=== PATIENT | female | born 1990 | race Caucasian/White ===

== ENCOUNTER 2022-02-22 00:08 | Day surgery (SDC) | payer OTHER, SELFPAY ==
[2022-02-11 10:22] VITALS: BMI 22.8
--- NOTE | 2022-02-11 10:26 | PC.NURSE ---
Report to the Outpatient Waiting Room, entrance under the green pavilion located off [facility], at time 0630 on date 02/22/22. Planned Procedure Time: 0830. Time changes happen often and if your time is changed the preop area will call you the afternoon before. - You and your visitor will be asked to self-screen and do not enter if you have any COVID symptoms. - Only one visitor is requested with a max of two and NO children visitors are allowed at this time. - The patient visitor may be requested to leave or wait in car when not with patient due to distancing restrictions. - A mask is REQUIRED within the hospital. Patients may have clear liquids (water, carbonated beverages, clear teas, apple juice) until 3 hours prior to surgery with a maximum of 20 ounces. - No food from midnight until time of surgery Take the following medications with a SIP of water the morning of surgery: N/A Medications to discontinue per physician: N/A Date to take last dose: N/A Please no make-up, nail iranian, hairspray, perfume, deodorant, or body powder the day of surgery. No jewelry (including any body piercings) or valuables the day of surgery, leave them at home. Please take a shower or bath the night before, or the morning of, surgery with an antibacterial soap. Wear comfortable, loose fitting clothing. - Jewelry must be removed prior to entering the operating room. Rings and piercings that are not removed may be cut off. - The hospital will not accept responsibility for valuables. - Please leave all valuables, including medications, at home the day of surgery. If you are going home after surgery, a licensed steam train driver must drive you home. - NO public transportation without another adult if you receive anesthesia. - We recommend that an adult stay with you for 24 hours following discharge. - We also recommend that you do not drive, make important decision, drink alcoholic beverages, or take any drugs that were not prescribed by your health care provider for at least 24 hours after your discharge time. Follow any additional instructions given to you from your surgeon. If you or anyone in your household have experienced Covid symptoms in the past week, please notify your surgeon or the nurse liaison at the phone number below for possible testing. Telephone instructions given to PT - ILYA PINEDA and asked if any additional questions and then verbalized understanding. Patient advised to call surgeon office or pre surgery nurse liaison [phone] if any additional questions.
[2022-02-22] VITALS (10 sets, daily range): BP systolic 99–126; BP diastolic 45–68; PULSE 72–116; RESP 12–20; TEMP 36.1–37.1; O2SAT 99–100
--- NOTE | 2022-02-22 06:29 | ECG_ITS ---
Measurements Intervals [place] Rate: 73 P: 69 [place]: 177 QRS: 92 QRSD: 96 T: 68 QT: 383 QTc: 422 Interpretive Statements SINUS RHYTHM WITH SINUS ARRHYTHMIA RIGHT AXIS DEVIATION POSSIBLE LEFT ATRIAL ENLARGEMENT DELAYED PRECORDIAL R/S TRANSITION BORDERLINE ECG NO PREVIOUS ECG AVAILABLE FOR COMPARISON Electronically Signed On 02-22-2022 9:02:03 BUSINESS AFFAIRS MANAGER by Philippe López D.O.
--- NOTE | 2022-02-22 06:54 | WPDHPUPDATE1 ---
History and Physical Update Update Date/Time: 02/22/22 06:54 History and Physical has been reviewed, including an updated exam of the patient. There are NO changes in the patient's condition. Risks, benefits, and alternatives have been discussed and questions answered. Patient agrees to proceed with procedure.
--- NOTE | 2022-02-22 06:54 | W.PM.PROC2 ---
Procedure Note - Detailed Date of Procedure 02/22/22 Pre-op Diagnosis Skin Laxity, Localized Adiposity Post-op Diagnosis Same Procedure Performed Belt lipectomy with suction lipectomy Surgeon All Eason MD Anesthesia General Findings Tissue removed: 1146 grams Lipoaspirat: 2300 cc Description of Procedure She is here today for the above. Previously and again today the risks, benefits, alternatives were discussed in extensive detail. I wanted them to be very realistic about the risks involved as well as expectations. We discussed aftercare and what to monitor for. I was very upfront about the risks of wound breakdown leading to loss of skin, open wounds, and need for additional procedures with permanent abdominal deformity. We discussed DVT/PE risks and management. Made sure answered all of their questions to their satisfaction today and consent was obtained. They were marked in the preoperative holding area with their verification. The patient was taken to the operating room. Anesthesia was provided by anesthesiology. A Means catheter was started. She was placed in a prone position with care taken to protect during position. They were prepped and draped in a standard sterile fashion. A surgical time-out was taken. Stab incisions were made and tumescent solution infiltrated. Once adequate time was allowed for hemostasis a 5mm basket cannula was utilized to complete suction lipectomy based on S.A.F.E. technique in multiple planes and passes. Suction lipectomy continued to result based on pre-operative planning, intra-operative observation, and rolling pinch test which were in full agreement. A 10 blade was used to make the upper incision. I continued dissection down to the level of fascia. Elevated inferiorly just what was planned for resection. A 10 blade used to make the lower incision. The intervening tissue was removed. care was taken to ensure the tension was appropriate for removal when the bed was flexed for the abdomen. I obliterated all space with 2-0 Vicryl. I then approximated using a 3 point suture with 2-0 Vicryl followed by 3-0 stratafix ,running subcuticular 4-0 Monocryl, and tissue glue. She was then placed supine and a 360 degree prep was completed and draped in a standard sterile fashion. I placed the patient in a flexed position to verify the upper and lower markings would reach. I then placed supine. A thorough abdominal examination was completed. Stab incisions were made and tumescent solution infiltrated. Once adequate time was allowed for hemostasis a 5mm basket cannula was utilized to complete suction lipectomy based on S.A.F.E. technique in multiple planes and passes. There were turned to bilateral lateral decubitus position with care taken to protect them for injury during this process. Suction lipectomy continued to result based on pre-operative planning, intra-operative observation, and rolling pinch test which were in full agreement. A 10 blade was used to make the upper incision. I continued dissection down to the level of fascia. Elevated just what was necessary for repair of the diastasis. I then again flexed the bed to verify the upper skin flap would reach the lower markings without tension. Once verified I placed her supine once again and a 10 blade used to make the lower incision. I elevated up to level the umbilicus and left the umbilicus intact on a well-vascularized stalk. The intervening tissue was removed. A 2 mm blunt cannula with 0.5% bupivicaine was injected deep to the fascia bilaterally. I plicated the diastasis recti using 0 PDO stratafix barbed suture. This was in 2 separate layers using 2 separate sutures as well. I repaired around the umbilicus leaving plenty of room for well-vascularized stalk of the umbilicus with 2-0 PDS. I also repaired lateral to the rectus using two layers of 0 PDO stratafix. The patient was flexed and starting from superior to infer
--- NOTE | 2022-02-22 07:11 | P.PNAN_ITS ---
Anes - Initial Pre Proc Eval Procedure: Operation Date: 02/22/22 08:30 Proposed Procedures p Belt Lipectomy with Liposuction - All Eason MD Date/Time: 02/22/22 07:11 Surgeon: All Eason MD Pre Op Diagnosis: Skin Laxity, Localized Adiposity Patient Data Age: 32 Gender: F Height: 1.75 m Weight: 70.31 kg Allergies Allergy/AdvReac Type Severity Reaction Status Date / Time cefaclor [From Ceclor] Allergy Hives Verified 02/11/22 10:22 clindamycin Allergy Hives Verified 02/11/22 10:22 Home Medications Medication Instructions Recorded Confirmed Type No Home Medications 02/11/22 02/11/22 History Patient hx anesthesia problems: none Family hx anesthesia problems: none Results Review: All pre-operative results and documents have been reviewed as part of the pre- operative evaluation. [facility] Social History Social History Smoking status: Never smoker Alcohol intake: never Substance use: never Substance use type: does not use Living arrangements: with family Spiritual care concerns: No Anes - Eval Final PreProcedure Day of Procedure 02/22/22 07:11 Patient weight: normal Heart: regular rate and rhythm Lungs: clear to auscultation Airway: Mallampati scale class II Neurological: alert and oriented Last oral intake: >/= 8 hours ASA classification: II Emergent: no Anesthetic plan: proceed Anesthesia type and monitoring: general ETT and standard monitoring Results Review: All pre-operative results and documents have been reviewed as part of the pre- operative evaluation. Informed Consent: The patient's anesthetic plan and its attendant risks and benefits were discussed with the patient/family/POA. Questions were solicited and answers provided to the satisfaction of the patient/family/POA.
[2022-02-22] MEDS: LACTATED RINGERS 1,000 ML 30 ML IV CONT ×2 (07:40→14:30)
[2022-02-22 07:51] LABS: Hematocrit 41.1 % (37.0-47.0); Hemoglobin 13.3 g/dL (12.0-15.0)
[2022-02-22] MEDS: SCOPOLAMINE 1.5 MG PATCH TRANSDERM (07:54)
[2022-02-22] MEDS: TRANEXAMIC ACID 1,000MG/ISO100 1,000 MG/100 ML BAG 200 MG IVPB (07:56)
[2022-02-22] MEDS: BUPIVACAINE/EPINEPHRINE 0.5% 30 ML VIAL 60 ML INFILTRATE (08:30)
[2022-02-22] MEDS: LACTATED RINGERS IRRIG 1,000 ML, LIDOCAINE HCL 1% LOCAL INJ 50 ML, EPINEPHrine HCL INJ ... INFILTRATE (08:30)
[2022-02-22] MEDS: ceFAZolin 2 GM/D5W 50 ML 2 GM/50 ML BAG IVPB (08:52)
--- NOTE | 2022-02-22 11:48 | SUR.OPER ---
patient repositioned from prone position to supine position at approx. 1059 with head on pillow, pillow under knees, both arms on foam padded armboards and secured with safety straps. safety belt applied across thighs
[2022-02-22] MEDS: ceFAZolin SODIUM 1 GM VIAL IV PUSH (13:13)
[2022-02-22] MEDS: KETOROLAC 15 MG/ML VIAL (*BKC) IV PUSH (13:22)
[2022-02-22] MEDS: fentaNYL CITRATE INJ (*CRX) 100 MCG/2 ML VIAL 25 MCG IV PUSH ×2 (15:15→15:27)
--- NOTE | 2022-02-22 15:53 | PC.NURSE ---
Patient transferred to post room #283 via (stretcher). Support person present. Oriented to unit, room, information board, rooming in, admission packet and security measures. Patient verbalizes understanding.
[2022-02-22] MEDS: LACTATED RINGERS 1,000 ML 125 ML IV CONT (16:10)
[2022-02-22] MEDS: oxyCODONE/ACETAMINOPHEN (*CRX) 5-325 MG TABLET PO ×3 (16:16→23:00)
[2022-02-22] MEDS: GABAPENTIN 300 MG CAPSULE PO (17:06)
[2022-02-22] MEDS: carisoprodoL (*CRX) 350 MG TABLET PO ×2 (17:06→23:00)
[2022-02-22] MEDS: DOCUSATE SODIUM 100 MG CAPSULE PO (19:20)
[2022-02-22] MEDS: ENOXAPARIN 40 MG/0.4 ML SYRINGE SUB-Q (19:20)
[2022-02-23] MEDS: MORPHINE SULFATE (*CRX) 2 MG/ML INJ IV PUSH ×2 (00:29→05:40)
[2022-02-23 04:40] VITALS: BP 100/52; PULSE 65; RESP 16; TEMP 37.1; O2SAT 99
[2022-02-23] MEDS: carisoprodoL (*CRX) 350 MG TABLET PO ×2 (04:40→11:08)
[2022-02-23] MEDS: oxyCODONE/ACETAMINOPHEN (*CRX) 5-325 MG TABLET PO ×2 (04:40→08:04)
[2022-02-23] MEDS: KETOROLAC 15 MG/ML VIAL (*BKC) IV PUSH (07:53)
[2022-02-23] MEDS: DOCUSATE SODIUM 100 MG CAPSULE PO (08:04)
[2022-02-23] MEDS: GABAPENTIN 300 MG CAPSULE PO (08:04)
--- NOTE | 2022-02-23 08:37 | WPDPN ---
Progress Note: A&P Assessment and Plan (1) Skin laxity: Code(s): L57.4 - Cutis laxa senilis Status: Acute Assessment and Plan: Doing well after belt lipectomy and 360 degree suction lipectomy. Will plan for discharge home once ambulating, pain controlled, tolerating diet. Today we had a lengthy discussion about the care. Activity limitations. What to monitor for. What is an emergency and when to proceed to ER / Dial 911. This was a lengthy open ended conversation with her and her . They voiced a clear understanding. Will see them back. Call with any questions or concerns. (2) Localized adiposity: Code(s): E65 - Localized adiposity Status: Acute Subjective Date/time seen: 02/23/22 07:00 Interval history: Doing well after belt lipectomy and 360 degree suction lipectomy. She had a little lightheadedness when trying to get up early this AM. Quickly resolved. Otherwise doing very well. No fevers / chills. No nausea / vomiting. No SOB. No chest pain. No calf tenderness. Review of Systems Review of Systems: All systems reviewed & are unremarkable except as noted in HPI and below Exam Narrative: A&O NOD Respiratory unlabored Abdomen / flanks / back soft. No signs of infection. No hematoma. No seroma. Good color and capillary refill. No calf tenderness. Negative Homann's. Objective Data Vital Signs Vital Signs: Vital Signs - 24 hr 02/22/22 14:30 02/22/22 15:00 02/22/22 15:10 Temperature 36.8 C Pulse Rate 77 116 H Respiratory Rate 14 18 Blood Pressure 103/46 L 108/55 L Pulse Oximetry 100 100 Oxygen Delivery Simple Face Mask Simple Face Mask Room Air Oxygen Flow Rate 6 6 02/22/22 15:15 02/22/22 15:30 02/22/22 14:45 Temperature Pulse Rate 85 95 76 Respiratory Rate 14 14 14 Blood Pressure 106/52 L 112/58 L 99/45 L Pulse Oximetry 99 99 100 Oxygen Delivery Room Air Room Air Simple Face Mask Oxygen Flow Rate 6 02/22/22 15:44 02/22/22 16:05 02/22/22 16:05 Temperature 36.1 C L Pulse Rate 94 91 91 Respiratory Rate 12 16 16 Blood Pressure 112/58 L 106/46 L Pulse Oximetry 99 100 100 Oxygen Delivery Room Air Room Air Oxygen Flow Rate 02/22/22 19:16 02/22/22 19:16 02/22/22 23:00 Temperature 36.8 C Pulse Rate 72 Respiratory Rate 18 Blood Pressure 101/51 L Pulse Oximetry 100 Oxygen Delivery Room Air Room Air Oxygen Flow Rate 02/22/22 23:00 02/23/22 04:40 02/23/22 04:40 Temperature 37.1 C 37.1 C Pulse Rate 76 65 Respiratory Rate 18 16 Blood Pressure 102/51 L 100/52 L Pulse Oximetry 99 99 Oxygen Delivery Room Air Oxygen Flow Rate Intake/Output Intake/Output: Intake & Output 02/20/22 02/21/22 02/22/22 02/23/22 23:59 23:59 23:59 23:59 Intake Total 950 1200 Output Total 965 400 Balance -15 800 Meds/Results Medications: Active Medications Generic Name Dose Route Start Last Admin Trade Name Freq PRN Reason Stop Dose Admin Carisoprodol 350 mg 02/22/22 18:00 02/23/22 04:40 Carisoprodol (*Crx) 350 Mg Tablet PO 350 mg Q6HR RAFAT Administration Diazepam 5 mg 02/22/22 14:26 Diazepam (*Crx) 5 Mg Tablet PO TID PRN Anxiety Docusate Sodium 100 mg 02/22/22 21:00 02/23/22 08:04 Docusate Sodium 100 Mg Capsule PO 100 mg Q12HR RAFAT Administration Enoxaparin Sodium 40 mg 02/22/22 21:00 02/22/22 19:20 Enoxaparin 40 Mg/0.4 Ml Syringe SUB-Q 40 mg DAILY RAFAT Administration Gabapentin 300 mg 02/22/22 17:00 02/23/22 08:04 Gabapentin 300 Mg Capsule PO 300 mg TID RAFAT Administration Lactated Ringer's 1,000 mls @ 125 mls/hr 02/22/22 14:30 02/23/22 00:10 Lr - Lactated Ringers Iv IV CONT Infused .Q8H RAFAT Infusion Ketorolac Tromethamine 15 mg 02/22/22 14:26 02/23/22 07:53 Ketorolac 15 Mg/Ml Vial (*Bkc) IV PUSH 15 mg Q6H PRN Administration Pain Rated 4-6 Morphine Sulfate 2 mg 02/22/22 14:26 02/23/22 05:40
--- NOTE | 2022-02-23 08:41 | P.DS_ITS ---
DS: Admitting Diagnosis Discharge Date 02/23/2022 Admitting Diagnosis Skin laxity localized adiposity DS: Discharge Diagnosis Discharge Diagnosis (1) Skin laxity: Code(s): L57.4 - Cutis laxa senilis Status: Acute (2) Localized adiposity: Code(s): E65 - Localized adiposity Status: Acute DS: Summary Hospital Course Hospital Course: Underwent belt lipectomy and 360 degree suction lipectomy. Postoperatively has done well. Will discharge home and see her back. Time Spent with Patient Time attestation: Total time spent providing and/or coordinating discharge services: Exam Narrative: A&O NOD Respiratory unlabored Abdomen / flanks / back soft. No signs of infection. No hematoma. No seroma. Good color and capillary refill. No calf tenderness. Negative Homann's. DS: Data Data Completed and Pending Labs on day of discharge: Labs from last 24 hours 02/22/22 07:33 Blood Type A Positive Antibody Screen Negative Discharge Plan Discharge Patient Disposition: Home, Self-Care Discharge Instructions: POST OPERATIVE DISCHARGE INSTRUCTIONS ALL EASON M.D. [facility] [address] [place] [address] * No driving for 24 hours after anesthesia and while you are taking pain medication. * Take all prescribed medication as directed * Diet as tolerated. * No lifting or activity that raises blood pressure for 48 hours. * Regular walking / ambulation. * May shower 24 hours after surgery. Once you shower do not take pain medication before showering as the combination of medication and heat may ca use you to feel dizzy or pass out. * No pools or tubs for 2 weeks. * Slowly stand up straight as tolerated. * No straining or lifting more than 20 pounds. * If no bowel movement within 24 hours may use laxative. * Call with any questions or concerns. * Dressing Care: Continue abdominal binder / foam 23 hours per day. If you have any questions or concerns, please call the office . If it is after hours you will be directed to the maintenance and operations supervisor exchange. Shortness of breath, chest pain, or other medical emergency dial 911 / proceed to the Emergency Room. Remove the Scopolamine patch that was placed behind your ear in 72 hours or less. Wash your hands after touching. Stand Alone Forms: General Discharge Instructions Follow-up/Referrals: All Eason MD [Physician] - 1 Week Discharge Medications: No Action No Home Medications
--- NOTE | 2022-02-23 08:41 | PM.DS ---
DS: Admitting Diagnosis Discharge Date 02/23/2022 Admitting Diagnosis Skin laxity localized adiposity DS: Discharge Diagnosis Discharge Diagnosis (1) Skin laxity: Code(s): L57.4 - Cutis laxa senilis Status: Acute (2) Localized adiposity: Code(s): E65 - Localized adiposity Status: Acute DS: Summary Hospital Course Hospital Course: Underwent belt lipectomy and 360 degree suction lipectomy. Postoperatively has done well. Will discharge home and see her back. Time Spent with Patient Time attestation: Total time spent providing and/or coordinating discharge services: Exam Narrative: A&O NOD Respiratory unlabored Abdomen / flanks / back soft. No signs of infection. No hematoma. No seroma. Good color and capillary refill. No calf tenderness. Negative Homann's. DS: Data Data Completed and Pending Labs on day of discharge: Labs from last 24 hours 02/22/22 07:33 Blood Type A Positive Antibody Screen Negative Discharge Plan Discharge Patient Disposition: Home, Self-Care Discharge Instructions: POST OPERATIVE DISCHARGE INSTRUCTIONS ALL EASON M.D. [facility] [address] [place] [address] [address] for 24 hours after anesthesia and while you are taking pain medication. Take all prescribed medication as directed Diet as tolerated. No lifting or activity that raises blood pressure for 48 hours. Regular walking / ambulation. May shower 24 hours after surgery. Once you shower do not take pain medication before showering as the combination of medication and heat may cause you to feel dizzy or pass out. No pools or tubs for 2 weeks. Slowly stand up straight as tolerated. No straining or lifting more than 20 pounds. If no bowel movement within 24 hours may use laxative. Call with any questions or concerns. Dressing Care: Continue abdominal binder / foam 23 hours per day. If you have any questions or concerns, please call the office . If it is after hours you will be directed to the nutrition internship exchange. Shortness of breath, chest pain, or other medical emergency dial 911 / proceed to the Emergency Room. Remove the Scopolamine patch that was placed behind your ear in 72 hours or less. Wash your hands after touching. Stand Alone Forms: General Discharge Instructions Follow-up/Referrals: All Eason MD [Physician] - 1 Week Discharge Medications: No Action No Home Medications
[2022-02-23 08:55] VITALS: BP 92/44; PULSE 78; RESP 18; TEMP 37.3; O2SAT 98
[2022-02-23] MEDS: diazePAM (*CRX) 5 MG TABLET PO (11:05)
== END 2022-02-23 11:10 | disposition home or self-care (01) ==
LOC: ANHSURGERY 07:59 → ANHOB2 15:50
PROVIDERS: Anesthesiology; Visit Provider Surgery Plastic and Reconstructive Surgery
PROC: (CPT 15830; principal; 2022-02-22 08:30)
DX: Z41.1 Encounter for cosmetic surgery (principal); L57.4 Cutis laxa senilis; E65 Localized adiposity
CPT/HCPCS: 15877; 15830; 15847; 36415; 85014; 85018; 86850; 86900; 86901; 93005; 99199; A9270; J0131; J0171; J0690; J1100; J1650; J1885; J2250; J2270; J2405; J2704; J3010; J7120